=== PATIENT | female | born 1940 | race Caucasian/White ===

== ENCOUNTER 2017-09-18 08:05 | Day surgery (SDC) | payer OTHER ==
[2017-09-15 11:00] VITALS: BMI 25.0
--- NOTE | 2017-09-18 07:13 | HP ---
History & Physical Update - History History: No Change - Physical Physical: No Change - Assessment Assessment: No Change - Plan Plan: No Change (Here today for elective repair of her L2-L4 steosis with associated lumbar radiculopathy (LLE))
[~2017-09-18 08:05] MED LIST: oxyCODONE HCL 10 MG SUSTAINED ACTING TABLET PO STA
[2017-09-18] MEDS ORDERED: DEXAMETHASONE SOD PHOSPHATE/PF 10 MG/ML SDV ONE (09:28)
[2017-09-18] MEDS ORDERED: MIDAZOLAM HCL 2 MG/2 ML SINGLE DOSE VIAL ONE (09:29)
[2017-09-18] MEDS ORDERED: BUPIVACAINE HCL/PF (5 MG/ML) 30 ML VIAL IJ ONE (09:29)
[2017-09-18] MEDS ORDERED: methylPREDNISolone ACET (DEPO) 40 MG/1 ML VIAL ONE (10:26)
[2017-09-18] MEDS ORDERED: LIDOCAINE 1%/EPI 1:100000 (20 ML MULTI DOSE VIAL) ONE (10:28)
[2017-09-18] MEDS ORDERED: BUPIVACAINE HCL/PF 0.5% (5MG/ML) 10 ML VIAL ONE (11:27)
[2017-09-18] MEDS ORDERED: LIDOCAINE 1%/EPI 1:100000 (50 ML MULTI DOSE VIAL) INF ONE (11:55)
[2017-09-18] MEDS ORDERED: GELATIN SPONGE,ABSORBABLE 1 GM PACKET TP ONE (13:21)
[2017-09-18] MEDS ORDERED: methylPREDNISolone ACET (DEPO) 40 MG/1 ML VIAL IM ONE (13:21)
[2017-09-18] MEDS ORDERED: THROMBIN (BOVINE) 5,000 UNIT VIAL TP ONE (13:21)
--- NOTE | 2017-09-18 13:29 | OP ---
Operative Note - Note: Operative Date: 09/18/17 Pre-Operative Diagnosis: Lumbar stenosis with radiculopathy Operation: L2-L4 Laminectomy (bilateral) Post-Operative Diagnosis: Same as Pre-op Surgeon: Stanley Arshad [place] Redevelopment Site Manager: Corey Sam Anesthesiologist/BEAD WIRE INSULATOR: Oliva Bingham (TLIP) Anesthesia: Spinal Estimated Blood Loss (mls): 20 Fluid Volume Replaced (mls): 1,000 Operative Report Dictated: Yes
[2017-09-18] MEDS ORDERED: LACTATED RINGERS SOLUTION 1,000 ML IV SCH (13:30)
[2017-09-18] MEDS ORDERED: ONDANSETRON 4 MG/2 ML VIAL IVPUSH PRN (13:30)
[2017-09-18] MEDS ORDERED: oxyCODONE HCL 5 MG TABLET PO PRN (13:30)
--- NOTE | 2017-09-18 13:30 | SURG ---
Surgery Top Cager Note Top Cager: Corey Sam PA-C Date of Service: 09/18/17 Diagnosis: L2-L4 spinal stenosis w/ radiculopathy Procedure: L2-L4 laminectomy (bilateral) I was present for the entirety of the operative procedure. For further detail, please refer to operative report. Visit type - Case Type Case Type: Scheduled Admission - New patient This patient is new to me today: Yes Date on this admission: 09/18/17
[2017-09-18 13:40] VITALS: TEMP 98.2
[2017-09-18 15:49] VITALS: BP 126/83; PULSE 86
--- NOTE | 2017-09-19 07:13 | OP ---
DATE OF OPERATION: 09/18/2017 PREOPERATIVE DIAGNOSIS: Spinal stenosis, L2 to L4. POSTOPERATIVE DIAGNOSIS: Spinal stenosis, L2 to L4. PROCEDURE PERFORMED: Laminectomy,L2-L3, L3-L4. SURGEON: Stanley Arshad MD TINNING EQUIPMENT TENDER: KIERSTEN Garcia ESTIMATED BLOOD LOSS: 50 mL. INTRAVENOUS FLUID: Per anesthesia. ANESTHESIA: Spinal. COMPLICATIONS: None. DISPOSITION: Patient brought to the PACU in stable condition. INDICATIONS FOR SURGERY: The patient is a 77-year-old female who has been suffering from pain from her back down her legs. X-rays and MRI were completed, which noted that she had spinal stenosis at L2-L3 and L3-L4. She had gone through an exhaustive course of treatment for this which included medications, physical therapy, as well as injections. Unfortunately, her pain continued to persist despite all this. At this point, risks, benefits, and alternatives were discussed, and the patient consented to surgery. OPERATIVE NOTE: Patient was brought to the operating room by the Anesthesia staff. After appropriate patient identification was performed, spinal anesthesia was given. A TLIP block was also given. Patient as able to position herself prone onto the OR table with all areas of bony prominences well padded. At this time, 2 needles were placed into the back to jhonatan off the L2 to L4 segments. An x-ray was taken to confirm this was correct. The needle was removed, and 10 mL of lidocaine with epinephrine was injected into her back. Her back was prepped and draped in a sterile manner. At this point, a time-out was completed. An incision was made from the top of L2 down to the bottom of L4. Dissection was carried down to the fascia. Fascia was split open at this time, and appropriate retractors were then placed in. A spinal needle was placed onto the L3 lamina to jhonatan off the L4 level. An x-ray was taken to confirm this was correct. The needle was removed, and the microscope was brought in. At this point, the L2-3 and L3-L4 interspinous ligament was cut. The L3 spinous process was cut. The lamina was removed with the bur. A complete decompression was performed such that by the end of the procedure, the L3 and L4 nerve roots appeared to be well decompressed. All bleedings well controlled at this time. Steroids were placed over the nerve root. Floseal was placed over that. The fascia was closed with a No. 1 Vicryl suture. The subcutaneous tissues were closed with 2-0 Vicryl suture. Skin was closed with 3-0 Monocryl suture. Dermabond was applied. Steri-Strips were applied, and sterile dressings applied. Patient was placed supine on the OR bed and brought to the PACU in stable condition. Janet EUGENE/[id number]
== END 2017-09-18 15:49 | disposition home or self-care (01) ==
LOC: FASU 08:05
PROVIDERS: ATTEND Orthopaedic Surgery Orthopaedic Surgery of the Spine
PROC: 01NB0ZZ Release Lumbar Nerve, Open Approach (ICD-10-PCS; principal; 2017-09-18 11:24)
DX: M48.061 Spinal stenosis, lumbar region without neurogenic claudication (principal)
CPT/HCPCS: 72100-TC-FY; 94760

== ENCOUNTER 2018-04-09 09:16 | Day surgery (SDC) | payer OTHER ==
[2018-04-04 15:27] VITALS: BMI 24.0
[~2018-04-09 09:16] MED LIST changes: +GELATIN SPONGE,ABSORBABLE 1 GM PACKET TP ONE; +LIDOCAINE 1%/EPI 1:100000 (50 ML MULTI DOSE VIAL) INF ONE; +THROMBIN (BOVINE) 5,000 UNIT VIAL TP ONE; -oxyCODONE HCL 10 MG SUSTAINED ACTING TABLET PO STA
[2018-04-09] MEDS ORDERED: MIDAZOLAM HCL 2 MG/2 ML SINGLE DOSE VIAL ONE (09:55)
[2018-04-09] MEDS ORDERED: BUPIVACAINE HCL/PF (5 MG/ML) 30 ML VIAL IJ ONE (09:55)
[2018-04-09] MEDS ORDERED: DEXAMETHASONE SOD PHOSPHATE/PF 10 MG/ML SDV ONE (09:55)
[2018-04-09] MEDS ORDERED: methylPREDNISolone ACET (DEPO) 40 MG/1 ML VIAL ONE (10:24)
[2018-04-09] MEDS ORDERED: LIDOCAINE 1%/EPI 1:100000 (20 ML MULTI DOSE VIAL) ONE (10:25)
[2018-04-09] MEDS ORDERED: THROMBIN (BOVINE) 5,000 UNIT VIAL TP ONE ×2 (10:25→11:50)
--- NOTE | 2018-04-09 10:56 | HP ---
History & Physical Update - History History: No Change - Physical Physical: No Change - Assessment Assessment: No Change - Plan Plan: No Change (Full H&P in the chart)
[2018-04-09] MEDS ORDERED: BUPIVACAINE HCL/PF 0.5% (5MG/ML) 10 ML VIAL ONE (11:04)
[2018-04-09] MEDS ORDERED: ceFAZolin SODIUM 1 GM VIAL ONE (11:19)
[2018-04-09] MEDS ORDERED: LIDOCAINE 1%/EPI 1:100000 (50 ML MULTI DOSE VIAL) INF ONE (11:41)
[2018-04-09] MEDS ORDERED: GELATIN SPONGE,ABSORBABLE 1 GM PACKET TP ONE (11:50)
[2018-04-09] MEDS ORDERED: methylPREDNISolone ACET (DEPO) 40 MG/1 ML VIAL IM ONE (12:23)
--- NOTE | 2018-04-09 12:57 | OP ---
Operative Note - Note: Operative Date: 04/09/18 Pre-Operative Diagnosis: lumbar stenosis Operation: laminectomy of L2-L3 Surgeon: Stanley Arshad Supervisor Reactor Fueling: Steffanie Yoder Anesthesiologist/SUBASSEMBLY ASSEMBLER: Randall Sanz Anesthesia: Spinal Estimated Blood Loss (mls): 20 Operative Report Dictated: Yes
--- NOTE | 2018-04-09 12:57 | SURG ---
Surgery Maintenance Technician 2Nd Shift Note Maintenance Technician 2Nd Shift: Steffanie Yoder PA-C Date of Service: 04/09/18 Diagnosis: lumbar stenosis Procedure: laminectomy of L2-L3 I was present for the entirety of the operative procedure. For further detail, please refer to operative report. Visit type - Case Type Case Type: Scheduled - Emergency Emergency Visit: No - New patient This patient is new to me today: Yes Date on this admission: 04/09/18
[2018-04-09 13:55] VITALS: TEMP 97.4
[2018-04-09 14:46] VITALS: BP 132/74; PULSE 80
[2018-04-09] MEDS ORDERED: oxyCODONE HCL 5 MG TABLET PO PRN (15:03)
[2018-04-09] MEDS ORDERED: ONDANSETRON 4 MG/2 ML VIAL IVPUSH PRN (15:03)
[2018-04-09] MEDS ORDERED: LACTATED RINGERS SOLUTION 1,000 ML IV SCH (15:15)
--- NOTE | 2018-04-09 22:51 | OP ---
DATE OF OPERATION: 04/09/2018 PREOPERATIVE DIAGNOSIS: Spinal stenosis, L2-3. POSTOPERATIVE DIAGNOSIS: Spinal stenosis, L2-3. PROCEDURE PERFORMED: Revision laminectomy, L2-3. SURGEON: Stanley Arshad MD SENIOR ANALYTIC CONSULTANT: KIERSTEN Camacho ESTIMATED BLOOD LOSS: 50 mL INTRAVENOUS FLUIDS: Per Anesthesia. ANESTHESIA: Spinal/TLIP. COMPLICATIONS: None. DISPOSITION: Patient brought to the PACU in stable condition. INDICATIONS FOR SURGERY: The patient is a 77-year-old female who has been suffering from pain from her back down her leg. She had previously undergone a laminectomy, had done well from the surgery when she began to have new symptoms. MRI was ordered which noted that she had spinal stenosis at L2-3 above her previous surgery. We discussed different options for treatment. Risks, benefits, and alternatives were discussed, and the patient consented to surgery. DESCRIPTION OF PROCEDURE: Patient was brought to the operating room by the anesthesia staff. After appropriate patient identification was performed, spinal anesthesia was given along with a TLIP block. Patient was able to position herself prone onto the OR table with all areas of bony prominences well padded at this time. Two needles were placed into her back to jhonatan off the L2-3 segment. All areas of bony prominences were well padded at this time. C-arm was brought in, and a preoperative x-ray was performed. Next, 10 mL of lidocaine with epinephrine were injected in her back at this time. Her back was prepped and draped in a sterile manner. At this point, a timeout was completed. An incision was made from the top of L2 down to the bottom of L3. Dissection was carried down to the fascia. Fascia was split open at this time, and the appropriate retractors were then placed in. A spinal needle was placed onto the L2 lamina to jhonatan off the L2-3 level. X-ray was taken to confirm this as correct. The needle was removed, and the microscope was brought in. The interspinous ligament at L1-2 was removed. The spinous process of L2 was removed. Scar tissue was noted. It was removed. A complete decompression was performed such that by the end of the procedure the L3 nerve root appeared to be well decompressed. All bleeding was well controlled at this time. Steroid was placed over the nerve root. FloSeal was placed over that. The fascia was closed with a No. 1 Vicryl suture. Subcutaneous tissues were closed with 2-0 Vicryl suture. Skin was closed with 3-0 Monocryl suture. Dermabond was applied. Steri-Strips were applied. A sterile dressing was applied. Patient was placed supine on the OR bed and brought to the PACU in stable condition. Janet [id number] MTDD
== END 2018-04-09 14:45 | disposition home or self-care (01) ==
LOC: FASU 09:16
PROVIDERS: ATTEND Orthopaedic Surgery Orthopaedic Surgery of the Spine
PROC: 01NB0ZZ Release Lumbar Nerve, Open Approach (ICD-10-PCS; 2018-04-09)
PROC: 0ST20ZZ Resection of Lumbar Vertebral Disc, Open Approach (ICD-10-PCS; principal; 2018-04-09 11:15)
DX: M48.061 Spinal stenosis, lumbar region without neurogenic claudication (principal)
CPT/HCPCS: 72100-TC-FY; 94760